=== PATIENT | female | born 1980 | race Hispanic/Latino ===

== ENCOUNTER 2023-04-22 14:21 | Outpatient (CLI) | payer OTHER, SELFPAY ==
--- NOTE | ~2023-04-22 | MM_ITS ---
EXAMINATION: MM screening good BI w selin HISTORY: Screening mammogram TECHNIQUE: Craniocaudal and mediolateral oblique 3-D tomosynthesis images were obtained and synthetic 2-D images were generated. CAD analysis was submitted and interpreted. COMPARISON: 07/10/2013 post ultrasound-guided biopsy mammogram 07/10/2013 ultrasound guided breast biopsy 06/14/2013 bilateral breast ultrasound examination BREAST PARENCHYMAL COMPOSITION: The breasts are extremely dense, which lowers the sensitivity of mamm ography. FINDINGS: There is a biopsy marker in the right breast; history of prior benign right breast biopsy. Occasional scattered bilateral benign calcifications, more numerous on the right. There is no evidence of suspicious mass, calcification, or architectural distortion to suggest malig love in either breast. There has been no suspicious interval change. IMPRESSION: 1. No mammographic evidence of malignancy. 2. Recommend routine screening mammography in one year. BI-RADS Category 2: Benign finding(s). Reviewed, dictated and finalized at location A. [employer]
== END 2023-04-22 14:22 | disposition home or self-care (01) ==
PROVIDERS: PCP Obstetrics & Gynecology; Visit Provider Obstetrics & Gynecology
DX: Z12.31 Encounter for screening mammogram for malignant neoplasm of breast (principal)
CPT/HCPCS: 77063; 77067

== ENCOUNTER 2023-09-28 09:58 | Outpatient (CLI) | payer OTHER, SELFPAY ==
[2023-09-28 10:40] LABS: Basophils Percent Auto 0.8 % (0.2-1.2); Eosinophils Percent Auto 0.8 % (0-4.4); Hematocrit 37.1 % (37.0-47.0); Hemoglobin 12.6 g/dL (12.0-15.0); Lymphocytes Absolute Auto 0.75 K/mm3 (0.9-3.2); Lymphocytes Percent Auto 29.5 % (18.3-44.2); Mean Corpuscular Volume 91.4 fl (80-100); Mean Platelet Volume 10.4 fl (7.4-10.4); Monocytes Absolute Auto 0.3 K/mm3 (0.1-0.6); Monocytes Percent Auto 12.2 % (2.6-8.5); Neutrophils Absolute Auto 1.4 K/mm3 (1.3-6.7); Neutrophils Percent Auto 56.7 % (45.5-73.1); Platelet Count Result 193 k/mm3 (150-375); Red Blood Count 4.06 M/mm3 (4.2-5.4); Red Cell Distribution Width 12.5 % (11.5-14.5); White Blood Count 2.5 K/mm3 (4.5-10.0)
[2023-09-28 11:41] LABS: Iron 120 ug/dL (37-170)
[2023-09-28 11:51] LABS: Percent Iron Saturation 33 % (20-50)
[2023-09-28 12:47] LABS: Folic Acid 10.9 ng/mL (2.76->20)
[2023-10-03 06:24] LABS: Methylmalonic Acid 152 nmol/L (87-318)
[2023-10-06 11:34] LABS: Soluble Transferrin Receptor 1.56 mg/L (0.76-1.76)
== END 2023-09-28 09:59 | disposition home or self-care (01) ==
LOC: ANHLAB 10:03
PROVIDERS: PCP Physician Assistant; Visit Provider Internal Medicine Hematology & Oncology
DX: D72.819 Decreased white blood cell count, unspecified (principal); D64.9 Anemia, unspecified
CPT/HCPCS: 36415; 82607; 82728; 82746; 83540; 83550; 83921; 84238; 85025; 86038; 86039

== ENCOUNTER 2023-09-28 10:35 | Outpatient (CLI) | payer OTHER, SELFPAY ==
--- NOTE | ~2023-09-28 | US_ITS ---
EXAMINATION: US abdomen complete DATE: 09/28/2023 11:51 INDICATION: Leukopenia. TECHNIQUE: Multiple grayscale and Doppler ultrasound images of the abdomen were obtained. COMPARISON: None FINDINGS: Abdominal aorta is normal in caliber. The inferior vena cava is normal. The visualized port ions of the head, body, and tail of the pancreas are normal. There is a 2.9 cm hyperechoic mass in th e liver. There are 1.2 cm and 0.9 cm hyperechoic masses in the liver. The gallbladder is normal in si ze. No gallstones or gallbladder wall thickening. There is no sonographic Trejo's sign. The common d uct is normal and measures 4 mm. The kidneys are normal in size. The spleen is normal in size. IMPRESSION: 1. Three hyperechoic liver masses measuring up to 2.9 cm. The absence of known malignancy or chronic liver disease, these findings are likely hemangiomas. Reviewed, dictated and finalized at location A.
== END 2023-09-28 10:36 | disposition home or self-care (01) ==
LOC: ANHIMG 10:39
PROVIDERS: PCP Physician Assistant; Visit Provider Internal Medicine Hematology & Oncology
DX: D72.819 Decreased white blood cell count, unspecified (principal); R16.0 Hepatomegaly, not elsewhere classified
CPT/HCPCS: 36415; 76700; 82607; 82728; 82746; 83540; 83550; 83921; 84238; 85025; 86038; 86039

== ENCOUNTER 2023-10-05 16:07 | Outpatient (CLI) | payer OTHER, SELFPAY | END 2023-10-05 16:08 | disposition home or self-care (01) | PROVIDERS: PCP Physician Assistant; Visit Provider Internal Medicine Hematology & Oncology | DX: D72.819 Decreased white blood cell count, unspecified (principal) | CPT/HCPCS: 88184 ==

== ENCOUNTER 2023-10-18 00:07 | Day surgery (SDC) | payer OTHER, SELFPAY ==
[2023-09-30 10:18] VITALS: BMI 22.9
[2023-10-18 11:14] VITALS: BP 110/67; PULSE 69; RESP 18; TEMP 36.4; O2SAT 100
[2023-10-18] MEDS: LACTATED RINGERS 1,000 ML 150 ML IV CONT (11:28)
--- NOTE | 2023-10-18 11:29 | P.PNAN_ITS ---
Anes - Initial Pre Proc Eval Procedure: Operation Date: 10/18/23 12:30 Proposed Procedures p Colonoscopy - Kaleb Niño MD Date/Time: 10/18/23 11:29 Surgeon: Kaleb Niño MD Pre Op Diagnosis: Constipation Patient Data Age: 43 Gender: F Height: 1.68 m Weight: 63.5 kg Last Vital Signs Temp 36.4 C L 10/18/23 11:14 Pulse 69 10/18/23 11:14 Resp 18 10/18/23 11:14 BP 110/67 10/18/23 11:14 Pulse Ox 100 10/18/23 11:14 O2 Del Method Room Air 10/18/23 11:14 Allergies Allergy/AdvReac Type Severity Reaction Status Date / Time No Known Allergies Allergy Verified 10/18/23 11:13 Home Medications Medication Instructions Recorded Confirmed Type fluoxetine 10 mg capsule 10 mg PO DAILY 09/30/23 10/18/23 History hydrochlorothiazide 25 mg tablet 25 mg PO DAILY PRN swelling 09/30/23 10/18/23 History meloxicam 15 mg tablet 15 mg PO DAILY PRN Pain 09/30/23 10/18/23 History Patient hx anesthesia problems: none Family hx anesthesia problems: none Results Review: All pre-operative results and documents have been reviewed as part of the pre- operative evaluation. [facility] Surgical History Surgical History (Updated 10/18/23 @ 11:29 by Lew Urbina MD) History of hip surgery Family History Family History Sibling Family history of thyroid disease Mother Family history of malignant neoplasm Other Diabetes mellitus Social History Social History Years smoked: 6 Smoking status: Current every day smoker Tobacco type: cigarettes Alcohol intake: current Drinks per week: 3 Substance use type: does not use Living arrangements: other Additional living arrangements comments: with sp Anes - Eval Final PreProcedure Day of Procedure 10/18/23 11:29 Patient weight: normal Heart: regular rate and rhythm Lungs: clear to auscultation Airway: Mallampati scale class II Neurological: alert and oriented Last oral intake: >/= 8 hours ASA classification: II Emergent: no Anesthetic plan: proceed Anesthesia type and monitoring: general GIVS and standard monitoring Results Review: All pre-operative results and documents have been reviewed as part of the pre- operative evaluation. Informed Consent: The patient's anesthetic plan and its attendant risks and benefits were discussed with the patient/family/POA. Questions were solicited and answers provided to the satisfaction of the patient/family/POA.
--- NOTE | 2023-10-18 11:33 | PM.HPGS ---
History of Present Illness History of Present Illness Consent: Risks, benefits, and alternatives have been discussed and questions answered. Patient agrees to proceed with procedure. Chief complaint: Constipation Narrative: Dilma Kirkland is a 43 year old female here for first colonoscopy, h/o constipation Review of Systems Review of Systems: All systems reviewed & are unremarkable except as noted in HPI and below PMFSH Past Medical History Medical History (Updated 10/18/23 @ 11:33 by Kaleb Niño MD) Constipation Surgical History Surgical History (Updated 10/18/23 @ 11:29 by Lew Urbina MD) History of hip surgery Family History Family History Sibling Family history of thyroid disease Mother Family history of malignant neoplasm Other Diabetes mellitus Social History Social History Years smoked: 6 Smoking status: Current every day smoker Tobacco type: cigarettes Alcohol intake: current Drinks per week: 3 Substance use type: does not use Living arrangements: other Additional living arrangements comments: with sp Meds Home Medications and Allergies Home Medications Medication Instructions Recorded Confirmed Type fluoxetine 10 mg capsule 10 mg PO DAILY 09/30/23 10/18/23 History hydrochlorothiazide 25 mg tablet 25 mg PO DAILY PRN swelling 09/30/23 10/18/23 History meloxicam 15 mg tablet 15 mg PO DAILY PRN Pain 09/30/23 10/18/23 History Allergies Allergy/AdvReac Type Severity Reaction Status Date / Time No Known Allergies Allergy Verified 10/18/23 11:13 Vital Signs Vital Signs - 24 hr 10/18/23 11:14 Temperature 97.5 F L Pulse Rate 69 Respiratory Rate 18 Blood Pressure 110/67 Pulse Oximetry 100 Oxygen Delivery Room Air Exam Const: General: comfortable and no acute distress HENMT: Face/Nose/Sinus: Normal nares present Eyes: General: appearance normal, both eyes and all related structures Neck: Neck: no JVD Resp: Auscultation: clear to auscultation bilaterally Cardio: Rate: regular rate Rhythm: regular rhythm GI: Inspection: non-distended GI Palp: Yes Soft to palpation Skin: General skin exam: normal color Neuro: General: gait normal Speech: normal speech Extrem: General: normal to inspection Psych: Mental Status: mental status grossly normal Assessment and Plan Assessment and plan (1) Constipation: Code(s): K59.00 - Constipation, unspecified Status: Acute Assessment and Plan: colonoscopy
[2023-10-18 11:52] VITALS: BP 183/111; PULSE 65; RESP 17; O2SAT 100
[2023-10-18 11:58] VITALS: BP 98/49
[2023-10-18 12:08] VITALS: BP 99/63; PULSE 68; RESP 16; O2SAT 100
[2023-10-18 12:18] VITALS: BP 101/65; PULSE 61; RESP 17; O2SAT 100
== END 2023-10-18 12:24 | disposition home or self-care (01) ==
PROVIDERS: PCP Physician Assistant; Visit Provider Internal Medicine Gastroenterology
PROC: 0DJD8ZZ Inspection of Lower Intestinal Tract, Via Natural or Artificial Opening Endoscopic (ICD-10-PCS; CPT 45378; principal; 2023-10-18 12:30)
DX: K59.00 Constipation, unspecified (principal); K64.9 Unspecified hemorrhoids; F17.210 Nicotine dependence, cigarettes, uncomplicated
CPT/HCPCS: 45378; J2001; J2704; J7120

== ENCOUNTER 2024-01-04 15:32 | Outpatient (CLI) | payer OTHER, SELFPAY ==
[2024-01-04 15:50] LABS: Basophils Percent Auto 0.5 % (0.2-1.2); Eosinophils Percent Auto 0.5 % (0-4.4); Hematocrit 39.2 % (37.0-47.0); Hemoglobin 13.5 g/dL (12.0-15.0); Immature Granulocyte Absolute 0.01 K/mm3 (0.00-0.031); Immature Granulocyte Percent A 0.2 % (0-0.5); Lymphocytes Absolute Auto 0.86 K/mm3 (0.9-3.2); Lymphocytes Percent Auto 20.8 % (18.3-44.2); Mean Corpuscular HGB Conc 34.4 g/dl (32-36); Mean Corpuscular Hemoglobin 31.3 pg (26-34); Monocytes Absolute Auto 0.4 K/mm3 (0.1-0.6); Monocytes Percent Auto 8.5 % (2.6-8.5); Neutrophils Absolute Auto 2.9 K/mm3 (1.3-6.7); Neutrophils Percent Auto 69.5 % (45.5-73.1); Platelet Count Result 190 k/mm3 (150-375); Red Blood Count 4.31 M/mm3 (4.2-5.4); Red Cell Distribution Width 11.6 % (11.5-14.5); White Blood Count 4.1 K/mm3 (4.5-10.0)
== END 2024-01-04 15:33 | disposition home or self-care (01) ==
PROVIDERS: PCP Physician Assistant; Visit Provider Internal Medicine Hematology & Oncology
DX: D64.9 Anemia, unspecified (principal)
CPT/HCPCS: 36415; 85025

== ENCOUNTER 2024-07-10 16:23 | Outpatient (CLI) | payer OTHER, SELFPAY ==
--- NOTE | ~2024-07-10 | MM_ITS ---
EXAMINATION: MM screening good BI w selin HISTORY: Screening TECHNIQUE: Craniocaudal and mediolateral oblique 3-D tomosynthesis images were obtained and synthetic 2-D images were generated. CAD analysis was submitted and interpreted. COMPARISON: 04/22/2023 BREAST PARENCHYMAL COMPOSITION: Dense: The breasts are extremely dense, which lowers the sensitivity of mammography. FINDINGS: There is no evidence of suspicious mass, calcification, or architectural distortion to sugg est malignancy in either breast. There has been no suspicious interval change. IMPRESSION: 1. No mammographic evidence of malignancy. 2. Recommend routine screening mammography in one year. BI-RADS Category 1: Negative Reviewed, dictated and finalized at location B.
--- OUTSIDE RECORDS SUMMARY | 2024-07-10 17:55 | XMS_ITS | Referral Summary ---
Author Organization [facility] Address [address] [place] [id number] Care Team Providers Care [employer] Lead Ads Marketing Name Role Phone No, Physician Primary Care Provider [phone] Allergies No known active allergies Medications tretinoin (RETIN-A) 0.05 % creamIndication s:Rhytides Apply pea-sized amount all over face nightly for acne. AVOID direct sunlight when using this medication. 45 g 11 04/05/2019 Active Active Problems No known active problems Social History Tobacco Use Types Packs/Day Years Used Date Smoking Tobacco: Every Day Smokeless Tobacco: Never Personal Safety Answer Date Recorded Getting School Help Needed Not on file 07/09 Comments Unknown Sex and Gender Information Value Date Recorded Sex Assigned at Not on file Legal Sex Female 10:59 AM CDT Gender Identity Not on file Sexual Orientation Not on file Plan of Treatment Not on file Insurance [employer] [place] [id number] Care Teams [employer] Lead Ads Marketing Relationship Specialty Start Date End Date No, Physician PCP - General 01/24/19
--- OUTSIDE RECORDS SUMMARY | 2024-07-10 17:55 | XMS_ITS | Clinical Summary ---
Author Organization [facility] Address [address] [place] [id number] Care Team Providers Care Director Marketing Analytics Name Role Phone No, Physician Primary Care Provider [phone] Allergies No known active allergies Medications tretinoin [...] on file Sexual Orientation Not on file Obstetrics History Plan of Treatment Not on file Insurance [employer] [place] [id number] Care Teams Director Marketing Analytics Relationship Specialty Start Date End Date No, Physician PCP - General 01/24/19
--- OUTSIDE RECORDS SUMMARY | 2024-07-10 17:55 | XMS_ITS | Clinical Summary ---
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 08/29/2023 Active FLUoxetine (PROzac) 10 mg capsule Take 10 mg by mouth daily. 08/15/2023 Active meloxicam (MOBIC) 15 mg tablet Take 1 Tablet by mouth daily. 08/02/2023 Active Active Problems No known active problems Encounters Date Type Department Care Team Description 07/04/2024 External Device Data [facility]STRACTION Provider, Abstract 07/03/2024 External Device Data [facility] Provider, Abstract 06/30/2024 External Device Data [facility] Provider, Abstract 06/29/2024 External Device Data [facility] Provider, Abstract 06/27/2024 External Device Data [facility]CTION Provider, Abstract 06/13/2024 External Device Data [facility]STRACTION Provider, Abstract 06/05/2024 External Device Data [facility]CTION Provider, Abstract 05/17/2024 External Device Data [facility] ABSTRACTION Provider, Abstract from Last 3 Months Family History Medical History Relation Name Comments Leukemia Mother Relation Name Status Comments Brother Alive Father Alive Mother Alive Sister 1 Alive Sister 2 Alive Son 1 Alive Son 2 Alive Social History Tobacco Use Types Packs/Day Years Used Date Smoking Tobacco: Every Day Cigarettes 0.3 13.2 Started: 2011 Smokeless Tobacco: Never Tobacco Cessation:Ready to Q uit: Not Asked; Counseling Given: Not Answered Alcohol Use Standard Drinks/Week Comments Yes 0 (1 standard drink = 0.6 oz pur e alcohol) occasional Comments Unknown Sex and Gender Information Value Date Recorded Sex Assigned at Not on file Legal Sex Female 9:10 AM CDT Gender Identity Not on file Sexual Orientation Not on file Last Filed Vital Signs Vital Sign Reading Time Taken Comments Blood Pressure 103/64 01/04/2024 3:50 PM CDT Pulse 93 01/04/2024 3:50 PM CDT Temperature 36.8 C (98.2 F) 01/04/2024 3:50 PM CDT Respiratory Rate 16 01/04/2024 3:50 PM CDT Oxygen Saturation 98% 01/04/2024 3:50 PM CDT Inhaled Oxygen Concentration - - Weight 66.2 kg (146 lb) 01/04/2024 3:50 PM CDT Height 167.6 cm (5' 6 ) 09/14/2023 1:30 PM CDT Body Mass Index 23.57 09/14/2023 1:30 PM CDT Plan of Treatment Upcoming Encounters Date Type Department Care Team (Late st Contact Info) Description 10/04/2024 2:30 PM CDT Office Visit [facility] [place] [address] [place] [address] [facility] [address] [place] [address] Patricio Mariano MD [address] [facility] [address] [place] [address] Health Maintenance Due Date Last Done Comments DTAP/TDAP/TD VACCINES (1 - Tdap) 2000 HEPATITIS B VACCINES (1 of 3 - 19+ 3-dose series) 2000 CERVICAL CANCER SCREENING 10/08/2011 BREAST CANCER SCREENING 2021 INFLUENZA VACCINE (#1) 2023 Preventative Visit- Commercial 04/25/2024 HPV VACCINES Aged Out No longer eligi ble based on patient's age to complete this topic Insurance [facility] OPEN ACCESS HMO [facility] CHOICE [id number]
--- OUTSIDE RECORDS SUMMARY | 2024-07-10 17:56 | XMS_ITS ---
Author Organization [facility] Address [address] 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 Bashir Mai MD
== END 2024-07-10 16:24 | disposition home or self-care (01) ==
LOC: ANHIMG 16:25
PROVIDERS: PCP Physician Assistant; Visit Provider Obstetrics & Gynecology
DX: Z12.31 Encounter for screening mammogram for malignant neoplasm of breast (principal)
CPT/HCPCS: 77063; 77067